=== PATIENT | female | born 1965 | race American Indian/Alaskan Native ===

== ENCOUNTER 2019-10-20 16:26 | Emergency (ER) | payer SELFPAY ==
[~2019-10-20 16:26] MED LIST: CALCIUM CHLORIDE 1,000 MG/10 ML SYRINGE IV ONE; EPINEPHrine 1:10,000 1 MG/10 ML SYRINGE ONE; SODIUM BICARB 8.4% 50 MEQ/50 ML SYRINGE IV ONE
--- NOTE | 2019-10-20 16:33 | Emergency Department Report ---
HPI - General Time Seen by Provider: 10/20/19 16:28 - HPI HPI: 53-year-old -[place]ag[place] female presents to the emergency department via EMS in cardiac arrest. The patient was found at a [employer] by the staff radiologist and therefore it is unknown how long the patient was down and unresponsive. EMS was called and found her to be pulseless. CPR and ACLS protocol was initiated about 20 minutes prior to arrival here. They were unable to intubate the patient but an intraosseous line was placed and the patient received epinephrine while receiving chest compressions. An Accu-Chek was done was about 100 in route. It does not appear that this patient has been to our facility previously and there is no known past medical history. ED Review of Systems ROS: Stated complaint: CARDIAC ARREST Other details as noted in HPI Comment: Unobtainable due to pts medical conditions Physical Exam - Physical Exam Physical Exam: GENERAL: The patient is ill-appearing and unresponsive. HEENT: Normocephalic. Atraumatic. EYES: Pupils are fixed and dilated. NECK: Supple. Trachea is midline. CHEST/LUNGS: No spontaneous breath sounds. Breath sounds are coarse with bag valve ventilation. HEART/CARDIOVASCULAR: No spontaneous heart sounds. ABDOMEN: Abdomen is soft. Morbidly obese habitus. SKIN: Skin is cool but dry. NEURO: The patient is unresponsive to any verbal, tactile or painful stimuli.. MUSCULOSKELETAL: There are no obvious deformities. No spontaneous movements. No palpable femoral pulse. - Intubation Time Out Performed: No Sedative: none Laryngoscope: other (Glidescope) Size: 4 ET Tube Size: 7.5 Tube Secured Depth (cm): 24 Tube Secured Location: lips Tube Placement Confirmation: visualized tube passing t, equal breath sounds bilat, confirmation by capnometr Intubation Complications: none ED Medical Decision Making - Medical Decision Making The patient presents as a cardiac arrest with CPR going on for about 20 minutes prior to arrival. EMS unable to intubate but the patient did receive chest compressions and a dose of epinephrine through an intraosseous line in the left leg. Patient was moved over to the bed/gurney in room 1 and chest compressions were continued. At this time I intubated the patient per the procedure section. The patient received a total of 3 rounds of epinephrine, one of sodium bicarbonate, 1 calcium chloride. The first rhythm check was pulseless electrical activity. The next 2 rhythm checks were asystole. At this point I used a bedside ultrasound to look at the heart and there was absolutely no movement or squeeze. Time of was called. - Differential Diagnosis dysrhythmia, pulmonary embolism, hemorrhagic stroke Critical Care Time: Yes Critical care time in (mins) excluding proc time.: 20 Critical care attestation.: If time is entered above; I have spent that time in minutes in the direct care of this critically ill patient, excluding procedure time. Critical care time was spent on this patient and doing her initial evaluation, supervision of ACLS protocol. This does not include the time spent intubating the patient. Critical Care Time: 20 minutes ED Disposition Clinical Impression: Cardiopulmonary arrest, Cardiac arrest Disposition: DC-20 Is pt being admited?: No Time of Disposition: 19:47
== END 2019-10-20 20:00 ==
LOC: ED 16:26
DX: I46.9 Cardiac arrest, cause unspecified (principal)
CPT/HCPCS: 31500; 92950; 99285; J0171